=== PATIENT | female | born 1955 | race Caucasian/White ===

== ENCOUNTER 2020-02-24 12:35 | Day surgery (SDC) | payer OTHER ==
[2020-02-23 10:18] VITALS: BMI 19.7
[2020-02-24] MEDS ORDERED: MIDAZOLAM HCL 2 MG/2 ML SINGLE DOSE VIAL ONE (13:47)
[2020-02-24] MEDS ORDERED: ROPIVACAINE HCL 0.5% 30ML VIAL ONE (13:47)
[2020-02-24] MEDS ORDERED: BUPIVACAINE HCL/PF 0.25% (2.5MG/ML) 10 ML VIAL ONE (13:56)
[2020-02-24] MEDS ORDERED: BUPIVACAINE HCL/PF 0.5% (5MG/ML) 10 ML VIAL ONE (13:57)
[2020-02-24] MEDS ORDERED: ceFAZolin SODIUM 1 GM VIAL ONE (15:11)
[2020-02-24] MEDS ORDERED: GUM MASTIC/STORAX/MSAL/ALCOHOL 1 DRP DROPSBTL MC ONE (15:58)
--- NOTE | 2020-02-24 16:58 | OP ---
DATE OF OPERATION: 02/24/2020 PREOPERATIVE DIAGNOSIS: Left comminuted intraarticular displaced distal radius fracture. POSTOPERATIVE DIAGNOSIS: Left comminuted intraarticular displaced distal radius fracture. OPERATIVE PROCEDURE: 1. Open reduction, internal fixation of left comminuted intraarticular displaced distal radius fracture with internal fixation of three or more fragments. 2. Left brachioradialis tenotomy at the wrist. SURGEON: Antonio De La Rosa MD. ANESTHESIA: Regional. COMPLICATIONS: None. ESTIMATED BLOOD LOSS: Minimal. INDICATION FOR PROCEDURE: A 64-year-old female with the above finding, indicated for operative treatment. Risks, benefits, and alternatives were discussed with the patient at length. Proper informed consent was obtained. PROCEDURE: After proper identification of the patient and correct operative site, patient was brought to the operating room and placed supine on the operating room table, all bony prominences well padded. Sedation and regional anesthesia had been given. Left upper extremity was prepped and draped in the usual sterile fashion. Well padded tourniquet was placed with a sterile prep. Esmarch bandage to exsanguinate the left upper extremity. Tourniquet inflated to 250 mmHg. Longitudinal incision made over the volar aspect of the wrist in line with the flexor carpi radialis tendon. Incision taken sharply through the skin with sharp and blunt dissection through the subcutaneous tissues. Flexor carpi radialis tendon along with contents of the carpal tunnel now bluntly and gently retracted in an ulnarward direction for the remainder of the procedure. Pronator quadratus was very thin and divided longitudinally. It was elevated off the distal radius. The radial styloid fragment was and needed to be freed; therefore a brachioradialis tenotomy was performed in subperiosteal fashion. The fracture was then reduced and held with an Arthrex distal radius locking p late. Once this was performed and the disk fracture was secure and confirmed to be in proper reduction on the radiographs in multiple planes, proper placement and sizing of hardware was also confirmed. Scapholunate interval and distal radial ulnar joints were stressed and found to be stable. The wound was irrigated and repaired in layers using 4-0 Vicryl and 4-0 Monocryl sutures. Steri-Strips and sterile dressings were applied, volar wrist splint was placed. The patient was reversed from anesthesia and brought to the recovery room in stable condition. She tolerated the procedure well. Kvng Moreau, the executive sales assistant, was integral throughout the procedure. Procedure could not have been performed without a skilled operative executive sales assistant. He was especially integral in holding reduction while the plate was placed. This could not have been performed by standard operating room nurse or tech. ANTONIO DE LA ROSA M.D. [id number]
[2020-02-24 17:56] VITALS: BP 128/65; PULSE 78; TEMP 98
== END 2020-02-24 17:56 | disposition home or self-care (01) ==
LOC: FASU 12:35
PROVIDERS: ATTEND Orthopaedic Surgery Hand Surgery
PROC: 0LN60ZZ Release Left Lower Arm and Wrist Tendon, Open Approach (ICD-10-PCS; 2020-02-24)
PROC: 0PSJ04Z Reposition Left Radius with Internal Fixation Device, Open Approach (ICD-10-PCS; principal; 2020-02-24 14:15)
DX: S52.572A Other intraarticular fracture of lower end of left radius, initial encounter for closed fracture (principal); X58.XXXA Exposure to other specified factors, initial encounter; Y93.9 Activity, unspecified; Y92.9 Unspecified place or not applicable
CPT/HCPCS: 73110-TC-LT-FY